=== PATIENT | male | born 1940 | race Caucasian/White ===

== ENCOUNTER 2024-08-13 13:50 | Emergency (ER) | payer MEDICARE, SELFPAY ==
[2024-08-13 13:58] VITALS: BP 142/77; PULSE 75; TEMP 36.7; O2SAT 98
--- NOTE | 2024-08-13 14:01 | US_ITS ---
[facility] [place] [id number] Patient Name: OSMAN NEGRETE MRN: [id number] date: 1940 Sex: M Assigned Patient Location: ER Current Patient Location: ER Accession/Order Number: [id number] Exam Date: 08/13/2024 14:20 Report Date: 08/13/2024 15:04 At the request of: ALEJANDRO CARRERA Procedure: US venous doppler LE RT EXAMINATION: US venous doppler LE RT HISTORY: Swelling COMPARISON: No relevant comparison available. FINDINGS: REGION: Right lower extremity THROMBI: None. COMPRESSIBILITY: Normal compressibility. FLOW: Normal waveform and antegrade flow between 5 and 20 cm/s. OTHER: Subcutaneous edema in region of ankle. US/US venous doppler LE RT IMPRESSION: 1. No deep vein thrombus within the right lower extremity. Electronically authenticated by: NICKY KERNS Date: 08/13/2024 15:04
--- NOTE | 2024-08-13 14:02 | ED.EXTPRO1 ---
HPI - Extremity Problem General Chief complaint: Extremity Problem, Nontraumatic Stated complaint: LOWER RIGHT EXTREMITY PAIN, REFERRAL Time Seen by Provider: 08/13/24 14:01 Source: patient and family Mode of arrival: walk-in Limitations: no limitations History of Present Illness HPI Narrative: 84 year old male presents to the ED for swelling, pain to his right lower leg, foot. Onset was one week ago. Pt is a poor historian. It is unknown if there was an injury. Pain is worse with ambulation. Denies fever, chills, N/T, weakness. Related Data Home Medications ?Medication ?Instructions ?Recorded ?Confirmed amlodipine 5 mg tablet 5 mg PO DAILY 08/13/24 08/13/24 aspirin 81 mg chewable tablet 81 mg PO DAILY 08/13/24 08/13/24 benazepril 5 mg tablet 5 mg PO DAILY 08/13/24 08/13/24 finasteride 1 mg tablet 1 mg PO DAILY 08/13/24 08/13/24 hydrochlorothiazide 12.5 mg capsule 12.5 mg PO DAILY 08/13/24 08/13/24 lovastatin 20 mg tablet 20 mg PO QPM 08/13/24 08/13/24 metoprolol tartrate 25 mg tablet 12.5 mg PO BID 08/13/24 08/13/24 multivitamin (Daily Multi-Vitamin 1 tab PO DAILY 08/13/24 08/13/24 tablet) omega 6-xts-jyz-fish oil 120 cap PO 08/13/24 mg-180 mg-500 mg capsule (Fish Oil) Previous Rx's ?Medication ?Instructions ?Recorded amoxicillin 875 mg-potassium 1 tab PO Q12H #20 tabs 08/13/24 clavulanate 125 mg tablet Allergies Allergy/AdvReac Type Severity Reaction Status Date / Time No Known Drug Allergies Allergy Verified 08/13/24 14:00 Review of Systems ROS Constitutional Denies: fever or chills Cardiovascular Denies: chest pain Respiratory Denies: shortness of breath Musculoskeletal Reports: extremity pain and extremity swelling; Denies: back pain Integumentary/Breast Reports: redness; Denies: rash or sores Neurological Denies: headache, numbness in extremities or weakness in extremities PFSH PFSH Social History Little interest or pleasure in doing things: not at all Feeling down, depressed, or hopeless: not at all Exam Constitutional Vital Signs, click to edit/add: Last Vital Signs Temp 98.1 F 08/13/24 13:58 Pulse 75 08/13/24 13:58 Resp 18 08/13/24 13:58 BP 142/77 H 08/13/24 13:58 Pulse Ox 98 08/13/24 13:58 O2 Del Method Room Air 08/13/24 13:58 Common normals: no apparent distress and oriented x3 General appearance: cooperative Eye Common normals: conjunctivae normal and no scleral icterus Neck & C-Spine Common normals: supple Cardio Peripheral pulses: posterior tibial pulses present and dorsalis pedis pulses present Extremity Other: 2+ edema to right lower leg, foot, ankle. Erythema to base of right great toe. No open wounds noted. No calf tenderness. Neuro Sensorium/orientation: awake and alert Course Vital Signs Vital signs: Vital Signs Temperature 98.1 F 08/13/24 13:58 Pulse Rate 75 08/13/24 13:58 Respiratory Rate 18 08/13/24 13:58 Blood Pressure 142/77 H 08/13/24 13:58 Pulse Oximetry 98 08/13/24 13:58 Oxygen Delivery Method Room Air 08/13/24 13:58 Temperature 98.1 F 08/13/24 13:58 Pulse Rate 75 08/13/24 13:58 Respiratory Rate 18 08/13/24 13:58 Blood Pressure 142/77 H 08/13/24 13:58 Pulse Oximetry 98 08/13/24 13:58 Oxygen Delivery Method Room Air 08/13/24 13:58 MDM - Extremity (Nontraumatic) MDM Narrative Medical decision making narrative: WBC count was 10. X-ray was negative for acute findings. Venous Doppler was negative for DVT. The patient will be treated for cellulitis. A prescription was provided for Augmentin at the recommendation of the physician. Follow up with podiatry for a recheck, further evaluation and treatment. Lab Data Attestation: I reviewed the patient's lab results. Labs: Lab Results 08/13/24 Range/Units 14:57 WBC 10.0 (4.0-11.0) 10^3/uL RBC 5.56 (4.70-6.10) 10^6/uL Hgb 15.2 (14.0-18.0) g/dL Hct 45.4 (42.0-54.0) % MCV 81.7 (80.0-94.0) fL MCH 27.3 (25.9-34.0) pg MCHC 33.5 (29.9-35.2) g/dL RDW 13.1 (11.0-15.0) % Plt Count 231 (150-450) 10^3/uL MPV 8.9 L (9.5-13.5) fL Neut % (Auto) 71.9 (43.0-75.0) % Lymph % (Auto) 19.5 L (20.5-60.0) % [place] % (Auto) 7.8 (1.7-12.0) % Eos % (Auto) 0.3 L (0.9-7.0) % Baso % (Auto) 0.2 (0.2-2.0) % Neut # (Auto) 7.2 H (1.4-6.5) 10^3/uL Lymph # (Auto) 2.0 (1.2-3.8) 10^3/uL [place] # (Auto) 0.8 (0.3-0.8) 10^3/uL Eos # (Auto) 0.0 (0.0-0.7) 10^3/uL Baso # (Auto) 0.0 (0.0-0.1) 10^3/uL Abs Immat Gran (auto) 0.03 (0.00-0.03) 10^3/uL Imm/Tot Granulo (auto) 0.3 (0.0-0.5) % Sodium 140 (136-145) mmol/L Potassium 3.8 (3.5-5.1) mmol/L Chloride 102 (98-107) mmol/L Carbon Dioxide 26.1 (21.0-32.0) mmol/L Anion Gap 15.7 BUN 23.0 H (7.0-18.0) mg/dL Creatinine 2.11 H (0.70-1.30) mg/dL Est GFR ( Amer) 37 L (>=60 mL/min/1.73m^2) Est GFR (Non-Af Amer) 30 L (>=60 mL/min/1.73m^2) BUN/Creatinine Ratio 10.9 Glucose 107 H (74-106) mg/dL Calcium 9.3 (8.5-10.1) mg/dL Imaging Data XR foot/US: Attestation: I have reviewed the pertinent imaging results. Radiologist's impression: ITS Impressions Venous Doppler Study 08/13/24 14:01 IMPRESSION: 1. No deep vein thrombus within the right lower extremity. Electronically authenticated by: NICKY KERNS Date: 08/13/2024 15:04 Foot X-Ray 08/13/24 14:11 IMPRESSION: 1. Soft tissue swelling of uncertain etiology. 2. Mild degenerative joint disease. Electronically authenticated by: NICKY KERNS Date: 08/13/2024 15:25 Discharge Plan Discharge Chief Complaint: Extremity Problem, Nontraumatic Clinical Impression: Cellulitis, Leg swelling Patient Disposition: Home, Self-Care Time of Disposition Decision: 16:18 Condition: Good Mode of Transportation: Private Vehicle Prescriptions / Home Meds: New amoxicillin-pot clavulanate 875-125 mg tablet 1 tab PO Q12H Qty: 20 0RF No Action multivitamin [Daily Multi-Vitamin] Tablet 1 tab PO DAILY Fish Oil 120-180-500 mg capsule PO hydrochlorothiazide 12.5 mg capsule 12.5 mg PO DAILY lovastatin 20 mg tablet 20 mg PO QPM amlodipine 5 mg tablet 5 mg PO DAILY benazepril 5 mg tablet 5 mg PO DAILY metoprolol tartrate 25 mg tablet 12.5 mg PO BID finasteride 1 mg tablet 1 mg PO DAILY aspirin 81 mg tablet,chewable 81 mg PO DAILY Print Language: Maltese Instructions: Cellulitis (ED) Additional Instructions: Return to the ER for new or worsening symptoms. Follow up with a assistant professor of drama for further evaluation and treatment. Referrals: LIV PACHECO [Primary Care Provider] - 1 week Ottoniel Bo DPM [Physician] - 1 week Discharge Date/Time: 08/13/24 16:30
--- NOTE | 2024-08-13 14:11 | XR_ITS ---
The [address] [address] Patient Name: OSMAN NEGRETE MRN: [id number] date: 1940 Sex: M Assigned Patient Location: ER Current Patient Location: ED.MAIN Accession/Order Number: [id number] Exam Date: 08/13/2024 15:02 Report Date: 08/13/2024 15:25 At the request of: ALEJANDRO CARRERA Procedure: XR foot RT min 3V PROCEDURE: XR foot RT min 3V HISTORY: pain, swelling of Right foot, greatest involving first toe COMPARISON: None. FINDINGS: BONES:Multifocal mild degenerative joint disease, most notable involving the first metatarsophalangeal joint. No fracture, dislocation, or bone lesion. Degenerative enthesopathic spurring of the calcaneus. SOFT TISSUES:Prominent dorsal soft tissue swelling. No radiopaque foreign body. EFFUSION:None visible. OTHER: Negative. XR/XR foot RT min 3V IMPRESSION: 1. Soft tissue swelling of uncertain etiology. 2. Mild degenerative joint disease. Electronically authenticated by: NICKY KERNS Date: 08/13/2024 15:25
[2024-08-13 15:09] LABS: Basophils Percent Auto 0.2 % (0.2-2.0); Eosinophils Percent Auto 0.3 % (0.9-7.0); Hematocrit 45.4 % (42.0-54.0); Hemoglobin 15.2 g/dL (14.0-18.0); Immature Granulocytes Abs Auto 0.03 10^3/uL (0.00-0.03); Immature Granulocytes Pct Auto 0.3 % (0.0-0.5); Lymphocytes Percent Auto 19.5 % (20.5-60.0); Mean Corpuscular HGB Conc 33.5 g/dL (29.9-35.2); Mean Corpuscular Hemoglobin 27.3 pg (25.9-34.0); Mean Corpuscular Volume 81.7 fL (80.0-94.0); Mean Platelet Volume 8.9 fL (9.5-13.5); Monocytes Absolute Auto 0.8 10^3/uL (0.3-0.8); Monocytes Percent Auto 7.8 % (1.7-12.0); Neutrophils Absolute Auto 7.2 10^3/uL (1.4-6.5); Neutrophils Percent Auto 71.9 % (43.0-75.0); Platelet Count 231 10^3/uL (150-450); Red Blood Count 5.56 10^6/uL (4.70-6.10); Red Cell Distribution Width 13.1 % (11.0-15.0)
[2024-08-13 15:19] LABS: Anion Gap 15.7; BUN Creatinine Ratio 10.9; Calcium 9.3 mg/dL (8.5-10.1); Carbon Dioxide 26.1 mmol/L (21.0-32.0); Chloride 102 mmol/L (98-107); Estimated GFR (African America 37 (>=60 mL/min/1.73m^2); Estimated GFR (Non-African Ame 30 (>=60 mL/min/1.73m^2); Glucose 107 mg/dL (74-106); Potassium 3.8 mmol/L (3.5-5.1); Sodium 140 mmol/L (136-145)
== END 2024-08-13 16:30 | disposition home or self-care (01) ==
PROVIDERS: Nurse Practitioner Family; Emergency Provider Emergency Medicine; PCP Family Medicine
DX: L03.115 Cellulitis of right lower limb (principal); M19.071 Primary osteoarthritis, right ankle and foot; M79.89 Other specified soft tissue disorders
CPT/HCPCS: 36415; 73630; 80048; 85025; 93971; 99285